=== PATIENT | female | born 1950 | race Caucasian/White ===

== ENCOUNTER 2018-02-23 15:44 | Emergency (ER) | payer MEDICARE, BC ==
--- NOTE | 2018-02-23 18:56 | RAD ---
CHEST TWO VIEWS 02/23/18 Comparison is made with the prior study dated 12/10/16. The heart is upper normal in size but unchanged over the interval. There is no vascular congestion to day, edema, or pleural effusion. The right hilum is slightly more prominent in size than the left, bu t to some extent this may be due to slight rotation of the patient. There is no focal pulmonary infil trate. The mediastinum appears normal for age and body habitus. No fractures were identified. IMPRESSION: No acute thoracic findings. POS: HOME
--- NOTE | 2018-02-23 19:09 | RAD ---
RIGHT SHOULDER THREE VIEWS: 02/23/18 Severe degenerative changes are seen in the glenohumeral joint. There is no dislocation. No acute fra cture could be identified. There is substantial bony overgrowth at the joint. The AC joint shows no o ffset and is probably still normal in width. There is some bony spurring here. IMPRESSION: Degenerative changes, particularly in the glenohumeral joint. No definite acute findings. POS: HOME
--- NOTE | 2018-02-23 19:11 | CT ---
CT OF THE BRAIN WITHOUT CONTRAST 02/23/18 Ventricles are normal in size with no shift. No intracranial bleeding or extra-axial hematoma was see n. There is no sign of mass, edema, or stroke. There is nearly complete opacification of the maxillary sinuses bilaterally, and substantial opacific ation of the ethmoid sinuses. The frontal sinuses are completely opaque. Some mucosal thickening is s een in the sphenoid sinus, but no air fluid levels are present. The nasal bones, zygomatic arches and skull all appeared intact. The mastoid air cells are clear. IMPRESSION: 1. No acute intracranial findings.' 2. Diffuse juarez sinusitis. POS: HOME
== END 2018-02-23 16:40 | disposition home or self-care (01) ==
LOC: BURERS 15:44
DX: S40.011A Contusion of right shoulder, initial encounter (principal); E11.9 Type 2 diabetes mellitus without complications; I10 Essential (primary) hypertension; J45.909 Unspecified asthma, uncomplicated; M06.9 Rheumatoid arthritis, unspecified; Z79.84 Long term (current) use of oral hypoglycemic drugs; Z79.899 Other long term (current) drug therapy; V43.92XA Unspecified car occupant injured in collision with other type car in traffic accident, initial encounter
CPT/HCPCS: 70450; 71046